=== PATIENT | female | born 1950 | race Caucasian/White ===

== ENCOUNTER → 2018-02-17 | Outpatient (CLI) | payer OTHER | LOC: M RAD 09:20 | DX: M51.16 Intervertebral disc disorders with radiculopathy, lumbar region (principal) | CPT/HCPCS: 72148 ==

== ENCOUNTER 2018-04-27 07:14 | Inpatient (IN) | payer OTHER ==
[2018-04-27] MEDS: LR 1,000 ML IV ×2 (07:50→16:45)
[2018-04-27] MEDS: CelecoXIB 400 MG CAP PO (08:17)
[2018-04-27] MEDS: GABAPENTIN 400 MG CAP PO (08:17)
[2018-04-27] MEDS: PERCOCET 5MG/325MG TAB PO (08:18)
[2018-04-27] MEDS ORDERED: MIDAZOLAM INJ 2 MG/2 ML VIAL (J2250) As Ordered (08:33)
[2018-04-27] MEDS ORDERED: fentaNYL 250 MCG/5 ML INJECTION (J3010) As Ordered (08:34)
[2018-04-27] MEDS ORDERED: PROPOFOL 200 MG/20 ML VIAL As Ordered (08:34)
[2018-04-27] MEDS ORDERED: ONDANSETRON 4MG/2ML VIAL (J2405) As Ordered ×2 (08:34→11:39)
[2018-04-27] MEDS ORDERED: dexameTHASONE 4 MG/ML 1ML VIAL (J1100) As Ordered (08:34)
[2018-04-27] MEDS ORDERED: ROCURONIUM BROMIDE 50 MG/5 ML VIAL As Ordered ×2 (08:34→11:05)
[2018-04-27] MEDS ORDERED: LIDOCAINE 2% INJ 100 MG/5 ML SDV (FOR ANES.) As Ordered (08:34)
[2018-04-27] MEDS: ceFAZolin 2 GM/D5W 50 ML IV BAG (J0690 PER 500MG) As Ordered ×2 (10:26→14:26)
[2018-04-27] MEDS: ceFAZolin 1GM INJ (J0690 PER 500MG) As Ordered ×2 (10:26→14:26)
[2018-04-27] MEDS ORDERED: PHENYLephrine HCL 500 MCG/5 ML (100MCG/ML) SYRINGE (J2370) As Ordered (10:35)
[2018-04-27] MEDS ORDERED: ePHEDrine SULFATE 25 MG/5 ML(5MG/ML) SYRINGE As Ordered ×2 (10:35→11:09)
[2018-04-27] MEDS: BUPIVACAINE/EPIN 0.25% 30 ML VIAL As Ordered (10:38)
[2018-04-27] MEDS ORDERED: PHENYLEPHRINE INJ 10MG/ML VIAL (J2370) As Ordered (11:23)
[2018-04-27] MEDS ORDERED: GLYCOPYRROLATE INJ 0.2 MG/ML 2 ML VIAL As Ordered (11:39)
[2018-04-27] MEDS ORDERED: NEOSTIGMINE 10 MG/10 ML VIAL (J2710) As Ordered (11:39)
[2018-04-27] MEDS ORDERED: HYDROmorphone HCL 2 MG/ML 1ML VIAL (J1170) As Ordered (11:42)
[2018-04-27] MEDS: THROMBIN SOLN 20,000 UNITS KIT As Ordered (15:12)
[2018-04-27] MEDS: TRANEXAMIC ACID 100 MG/ML 10ML VIAL As Ordered (15:12)
[2018-04-27] MEDS: EPINEPHrine INJ 1 MG/ML 1ML AMP As Ordered (15:12)
[2018-04-27] MEDS: VANCOMYCIN HCL 500 MG/10 ML VIAL (J3370) As Ordered (15:13)
[2018-04-27] MEDS: BACITRACIN PWD 50,000 UNITS VIAL As Ordered (15:13)
[2018-04-27] MEDS: BUPIVACAINE HCL 0.5% 10 ML VIAL As Ordered (16:01)
[2018-04-27] MEDS: BUPIVACAINE LIPOSOME/PF 1.3% 20ML VIAL (13.3MG/ML)(EXPAREL)(C9290 PER1MG) As Ordered (16:01)
[2018-04-27] MEDS ORDERED: fentaNYL 100 MCG/2 ML INJECTION (J3010) IV (16:45)
[2018-04-27] MEDS ORDERED: MORPHINE 10 MG/ML 1ML VIAL (J2270) IV (16:45)
[2018-04-27] MEDS ORDERED: ONDANSETRON 4MG/2ML VIAL (J2405) IV (16:45)
[2018-04-27] MEDS ORDERED: PERCOCET 5MG/325MG TAB PO ×3 (16:45→17:30)
[2018-04-27] MEDS ORDERED: ALBUTEROL SULFATE 2.5 MG/0.5 ML INH NEB SOLN INH (17:15)
[2018-04-27] MEDS ORDERED: ALBUTEROL 90 MCG/ACT 8GM HFA INHALER INH (17:15)
[2018-04-27] MEDS ORDERED: PROMETHAZINE INJ 25 MG/ML VIAL (J2550) IV (17:15)
[2018-04-27] MEDS ORDERED: HYDROMORPHONE HCL 0.5 MG/ 0.5 ML SYRINGE (J1170 PER 1) IV (17:15)
[2018-04-27] MEDS ORDERED: ACETAMINOPHEN TAB 650MG DOSE (2X325MG) PO (17:30)
[2018-04-27 18:43] LABS: HEMATOCRIT 34.7 % (36.0-47.0); HEMOGLOBIN 11.9 g/dl (12.0-15.5); MEAN CORPUSCULAR HEMOGLOBIN 31.8 pg (27.0-33.0); MEAN CORPUSCULAR HGB CONC 34.3 g/dl (32.0-36.5); MEAN CORPUSCULAR VOLUME 92.8 fl (80.0-96.0); PLATELET COUNT, AUTOMATED 297 10^3/uL (150-450); RED BLOOD COUNT 3.74 10^6/uL (4.00-5.40); RED CELL DISTRIBUTION WIDTH 12.7 % (11.5-14.5); WHITE BLOOD COUNT 22.3 10^3/uL (4.0-10.0)
[2018-04-27 19:00] LABS: ANION GAP 12 MEQ/L (8-16); BLOOD UREA NITROGEN 14 MG/DL (7-18); CALCIUM LEVEL 8.2 MG/DL (8.8-10.2); CARBON DIOXIDE LEVEL 21 MEQ/L (21-32); CHLORIDE LEVEL 106 MEQ/L (98-107); CREATININE FOR GFR 1.02 MG/DL (0.55-1.30); GLOMERULAR FILTRATION RATE 57.9 (>45); GLUCOSE, FASTING 181 MG/DL (70-100); POTASSIUM SERUM 4.2 MEQ/L (3.5-5.1); SODIUM LEVEL 139 MEQ/L (136-145)
[2018-04-27] MEDS: D5W/LR 1,000 ML IV (19:30)
[2018-04-27] MEDS: SIMVASTATIN 40 MG TAB PO (20:52)
[2018-04-27] MEDS: ceFAZolin SOD 1 GM in D5W MINI-BAG PLUS 50 ML IV (20:52)
[2018-04-27] MEDS: MONTELUKAST 10 MG TAB PO (20:52)
[2018-04-27] MEDS: HYDROMORPHONE HCL 0.5 MG/ 0.5 ML SYRINGE (J1170 PER 1) IV (23:15)
[2018-04-28] MEDS: ceFAZolin SOD 1 GM in D5W MINI-BAG PLUS 50 ML IV (02:24)
[2018-04-28] MEDS: HYDROMORPHONE HCL 0.5 MG/ 0.5 ML SYRINGE (J1170 PER 1) IV (03:24)
[2018-04-28] MEDS: D5W/LR 1,000 ML IV (03:30)
[2018-04-28] MEDS: CYCLOBENZAPRINE 10 MG TAB PO (05:32)
[2018-04-28 06:25] LABS: HEMATOCRIT 30.8 % (36.0-47.0)
[2018-04-28 06:35] LABS: ANION GAP 9 MEQ/L (8-16); BLOOD UREA NITROGEN 14 MG/DL (7-18); CALCIUM LEVEL 8.3 MG/DL (8.8-10.2); CARBON DIOXIDE LEVEL 25 MEQ/L (21-32); CHLORIDE LEVEL 101 MEQ/L (98-107); CREATININE FOR GFR 0.91 MG/DL (0.55-1.30); GLOMERULAR FILTRATION RATE > 60.0 (>45); GLUCOSE, FASTING 149 MG/DL (70-100); MAGNESIUM LEVEL 1.6 MG/DL (1.8-2.4); POTASSIUM SERUM 3.8 MEQ/L (3.5-5.1); SODIUM LEVEL 135 MEQ/L (136-145)
[2018-04-28] MEDS: PERCOCET 5MG/325MG TAB PO ×2 (08:27→11:54)
[2018-04-28] MEDS ORDERED: DULoxetine 20 MG CAP (CYMBALTA) PO (09:00)
[2018-04-28] MEDS: hydroCHLOROthiazide 12.5 MG CAPSULE PO (09:58)
[2018-04-28] MEDS: ASPIRIN 81 MG ENTERIC TAB PO (09:59)
[2018-04-28] MEDS: DULoxetine 30 MG CAP (CYMBALTA) PO (10:00)
[2018-04-28] MEDS: LOSARTAN 50 MG TAB PO (10:00)
[2018-04-28] MEDS: METAMUCIL (PSYLLIUM) PACKET PO (10:00)
[2018-04-28] MEDS: MAGNESIUM OXIDE 400 MG TAB (MAG-OX) PO (10:05)
== END 2018-04-28 12:00 | disposition home or self-care (01) | DRG 460 ==
LOC: M OR 07:14 → M MS5PR 17:20
PROC: 0SG1071 Fusion of 2 or more Lumbar Vertebral Joints with Autologous Tissue Substitute, Posterior Approach, Posterior Column, Open Approach (ICD-10-PCS; principal; 2018-04-27 08:45)
PROC: 0QB00ZZ Excision of Lumbar Vertebra, Open Approach (ICD-10-PCS; 2018-04-27 08:45)
DX: M51.16 Intervertebral disc disorders with radiculopathy, lumbar region (principal); J45.909 Unspecified asthma, uncomplicated; I10 Essential (primary) hypertension; E78.2 Mixed hyperlipidemia; F41.9 Anxiety disorder, unspecified; F17.210 Nicotine dependence, cigarettes, uncomplicated; E66.9 Obesity, unspecified; R26.89 Other abnormalities of gait and mobility; M43.16 Spondylolisthesis, lumbar region; F32.9 Major depressive disorder, single episode, unspecified; Z96.651 Presence of right artificial knee joint; Z79.82 Long term (current) use of aspirin; Z79.899 Other long term (current) drug therapy; Z88.6 Allergy status to analgesic agent; Z68.36 Body mass index [BMI] 36.0-36.9, adult